=== PATIENT | female | born 1975 | race Caucasian/White ===

== ENCOUNTER → 2016-05-12 | Outpatient (CLI) | payer BC ==
[~2016-05-12] MED LIST: ATV1 PO; BCP; BUPR-79 PO; LAMO200T38 PO; OMEG10007 PO; OXYC-57 PO; PYRI100T4 PO; SIMV40TA2 PO
--- NOTE | 2016-05-12 17:28 | DIAGNOSTIC IMAGING REPORT ---
WEIGHTBEARING RIGHT ANKLE RADIOGRAPHS CLINICAL HISTORY: Right ankle pain. Heel pain. COMPARISON: Right foot radiographs December 28, 2014. FINDINGS: Alignment of the right ankle is anatomic. Talar dome is intact. No fracture or osseous lesion is present. Calcaneus is unremarkable on the lateral projection. IMPRESSION: Unremarkable right ankle radiographs. Electronically signed by: Zachary Alonso M.D. 05/12/2016 5:26 PM Dictated Date/Time: 05/12/2016 5:25 PM
== END | disposition home or self-care (01) ==
LOC: C.RAD 16:58
PROVIDERS: ATTEND Podiatrist Primary Podiatric Medicine
DX: M79.671 Pain in right foot (principal)

== ENCOUNTER → 2016-05-20 | Outpatient (CLI) | payer BC ==
--- NOTE | 2016-05-20 15:15 | DIAGNOSTIC IMAGING REPORT ---
CT OF THE RIGHT FOOT AND ANKLE WITHOUT CONTRAST CLINICAL HISTORY: Right ankle pain following fall. Evaluate for posterior talar fracture. TECHNIQUE: Axial images of the right ankle and foot were obtained without IV contrast. Sagittal and coronal reconstructions were viewed. COMPARISON STUDY: Right ankle radiographs May 12, 2016 and right foot radiographs December 28, 2014. FINDINGS: Alignment of the tibiotalar subtalar joints is anatomic. No acute fracture within the right ankle is identified by CT. This study is mildly compromised by artifact. No osseous lesion is identified. Soft tissues are suboptimally assessed by CT. No significant fluid collection is identified. There is mild subcutaneous edema. IMPRESSION: No acute fracture of the right ankle or foot. Electronically signed by: Zachary Alonso M.D. 05/20/2016 3:13 PM Dictated Date/Time: 05/20/2016 3:03 PM
== END | disposition home or self-care (01) ==
LOC: C.CTS 14:02
PROVIDERS: ATTEND Podiatrist Primary Podiatric Medicine
DX: M79.671 Pain in right foot (principal)

== ENCOUNTER → 2017-01-15 | Outpatient (CLI) | payer BC ==
[~2017-01-15] MED LIST changes: +LAMO200T35 PO; -LAMO200T38 PO
[2017-01-15 15:05] LABS: ALT/SGPT 19 U/L (12-78); BLOOD UREA NITROGEN 11 mg/dl (7-18); BUN/CREATININE RATIO 13.4 (10-20); CARBON DIOXIDE 26 mmol/L (21-32); CHLORIDE 103 mmol/L (98-107); CHOLESTEROL 149 mg/dl (0-200); CREATININE 0.83 mg/dl (0.60-1.20); GLUCOSE 121 mg/dl (70-99); POTASSIUM 3.5 mmol/L (3.5-5.1); SODIUM 136 mmol/L (136-145); TRIGLYCERIDES 126 mg/dl (0-150); VERY LOW DENSITY LIPOPROT CALC 25 mg/dl
[2017-01-15 15:08] LABS: ALKALINE PHOSPHATASE 96 U/L (45-117); AST/SGOT 11 U/L (15-37); CHOLESTEROL/HDL RATIO 2.3; HDL CHOLESTEROL 65 mg/dl; LDL CHOLESTEROL CALCULATED 59 mg/dl
== END | disposition home or self-care (01) ==
LOC: C.LAB1850 13:28
PROVIDERS: ATTEND Internal Medicine
DX: E78.5 Hyperlipidemia, unspecified (principal); F30.9 Manic episode, unspecified